=== PATIENT | male | born 1960 | race Caucasian/White ===

== ENCOUNTER → 2016-10-16 | Outpatient (CLI) | payer OTHER ==
--- NOTE | 2016-10-16 13:31 | KCIC ---
EXAM: Brain MRI without contrast. HISTORY: Headaches. Pituitary surgery. TECHNIQUE: Multiplanar, multisequence magnetic resonance imaging of the brain was performed without contrast. COMPARISON: None. FINDINGS: There is no restricted diffusion to suggest acute or subacute infarction. There is no susceptibility effect to suggest hemorrhage. There is no mass effect or midline shift. There is no hydrocephalus. There are multiple scattered focal areas of T2/FLAIR hyperintensity within the cerebral white matter, a nonspecific finding. There is a cystic lesion within the left aspect of the sella which extends into the suprasellar space, resulting in deviation of the optic chiasm and infundibulum. This measures 2.3 cm craniocaudally by 1.8 cm transversely by 2.0 cm anteroposteriorly. This does not appear to involve the cavernous sinuses. The orbits are unremarkable. There is mild paranasal sinus mucosal thickening. The mastoid air cells are clear. There are normal flow voids within the cerebral vessels. IMPRESSION: 1. No acute intracranial finding. 2. Scattered focal areas of signal change within the cerebral white matter, a nonspecific finding. This is likely due to chronic small vessel disease in a patient of this age. 3. 2.3 x 2.0 x 1.8 cm cystic lesion within the sella and suprasellar space. The appearance favors an arachnoid cyst, cystic pituitary adenoma or Rathke cleft cyst. The possibility of an alternative cystic lesion is not excluded. There is no prior study available at the time of comparison to assess for interval change. Comparison with prior studies is recommended. Electronically signed by: Stacey Qureshi MD (10/16/2016 1:28 PM) [email or web address]
--- NOTE | 2016-10-16 14:20 | KCIC ---
EXAM: Thyroid sonogram. HISTORY: Thyroid nodule. TECHNIQUE: Sonographic imaging of the thyroid was performed. COMPARISON: None. FINDINGS: The exam is limited due to body habitus and patient neck immobility. The right thyroid lobe measures 3.1 x 1.7 x 1.4 cm. The left thyroid lobe measures 3.0 x 1.6 x 1.8 cm. The thyroid isthmus measures 4.1 mm in thickness. There is a 1.6 x 1.1 x 1.1 cm mixed cystic and solid lesion within the left thyroid lobe. There is blood flow within the solid lesion component. This is superimposed on diffusely heterogeneous thyroid parenchymal echogenicity. IMPRESSION: 1. 1.6 cm mixed solid and cystic left thyroid lesion. 2. Diffusely heterogeneous thyroid parenchyma. This can be seen as a sequela of prior thyroiditis. Electronically signed by: Stacey Qureshi MD (10/16/2016 2:17 PM) [id number]
== END | disposition home or self-care (01) ==
LOC: KCIC MRI 12:34
PROVIDERS: ATTEND Internal Medicine
DX: E04.1 Nontoxic single thyroid nodule (principal); D35.2 Benign neoplasm of pituitary gland; G93.0 Cerebral cysts; E06.9 Thyroiditis, unspecified; R51 Headache
CPT/HCPCS: 70551; 76536

== ENCOUNTER → 2018-03-12 | Outpatient (CLI) | payer OTHER ==
[2018-03-12 16:04] LABS: BASO # 0.1 x10^3/uL (0.0-0.2); BASO % 1 % (0-3); EOS # 0.4 x10^3/uL (0.0-0.7); EOS % 7 % (0-3); HEMATOCRIT 45.9 % (39.0-53.0); HEMOGLOBIN 15.7 g/dL (13.0-17.5); LYMPH # 1.6 x10^3/uL (1.0-4.8); LYMPH % 24 % (24-48); MEAN CORPUSCULAR HEMOGLOBIN 31 pg (25-35); MEAN CORPUSCULAR HGB CONC 34 g/dL (31-37); MEAN CORPUSCULAR VOLUME 91 fL (79-100); MONO % 15 % (0-9); NEUT # 3.6 x10^3uL (1.8-7.7); NEUT % 54 % (31-73); PLATELET COUNT 204 x10^3/uL (140-400); RED BLOOD COUNT 5.04 x10^6/uL (4.30-5.70); RED CELL DISTRIBUTION WIDTH 15.3 % (11.5-14.5); WHITE BLOOD COUNT 6.6 x10^3/uL (4.0-11.0)
[2018-03-12 16:06] LABS: BILIRUBIN,URINE NEGATIVE (NEG); CLARITY,URINE CLEAR; COLOR,URINE YELLOW; NITRITE,URINE NEGATIVE (NEG); PH,URINE 6.5; PROTEIN,URINE NEGATIVE (NEG-TRACE)
[2018-03-12 16:24] LABS: BACTERIA,URINE 0 /HPF (0-FEW); RBC,URINE 0 /HPF (0-2); SQUAMOUS EPITHELIAL CELL,UR FEW /LPF; WBC,URINE RARE /HPF (0-4)
[2018-03-12 16:52] LABS: ALBUMIN 3.4 g/dL (3.4-5.0); CALCIUM 9.8 mg/dL (8.5-10.1); CREATININE 1.3 mg/dL (0.7-1.3); DIRECT BILIRUBIN 0.1 mg/dL (0.0-0.2); GFR 56.9; POTASSIUM 4.4 mmol/L (3.5-5.1); TOTAL BILIRUBIN 0.7 mg/dL (0.2-1.0); TOTAL PROTEIN 7.7 g/dL (6.4-8.2)
[2018-03-12 16:53] LABS: CHOLESTEROL/HDL RATIO 3.4
[2018-03-12 23:10] LABS: HEMOGLOBIN A1C 5.8 % (4.8-5.6)
[2018-03-13 04:17] LABS: CALCIUM PTH 10.2 mg/dL (8.7-10.2); CREATININE PTH 1.17 mg/dL (0.76-1.27); PHOSPHORUS PTH 3.1 mg/dL (2.5-4.5); PTH INTACT 111 pg/mL (15-65)
== END | disposition home or self-care (01) ==
LOC: LAB 15:38
PROVIDERS: ATTEND Nurse Practitioner Family
DX: I82.519 Chronic embolism and thrombosis of unspecified femoral vein (principal); N25.81 Secondary hyperparathyroidism of renal origin; R60.0 Localized edema; Z94.0 Kidney transplant status; Z68.37 Body mass index [BMI] 37.0-37.9, adult
CPT/HCPCS: 80061; 80069; 80076; 81001; 82306; 83036; 83735; 83970; 85025